=== PATIENT | male | born 1970 | race Caucasian/White ===

== ENCOUNTER 2019-07-02 17:14 | Emergency (ER) | payer MEDICAID ==
[~2019-07-02] VITALS: Ht 175.3 cm; Wt 72.7 kg
[2019-07-02 18:05] VITALS: BP 146/94
[2019-07-02 18:28] LABS: BASOPHILS # (AUTO) 0.04 x10^3/uL (0-0.1); BASOPHILS % (AUTO) 0 % (0-1); EOSINOPHILS % (AUTO) 3 % (1-7); LYMPHOCYTES # (AUTO) 1.58 x10^3/uL (1-3.4); LYMPHOCYTES % (AUTO) 13 % (22-44); MD NO; MEAN CORPUSCULAR HEMOGLOBIN 29.2 pg (27.5-34.5); MEAN CORPUSCULAR HGB CONC 32.9 g/dL (33.2-36.2); MEAN CORPUSCULAR VOLUME 88.9 fL (81-97); MEAN PLATELET VOLUME 10.5 fL (7.4-10.4); MONOCYTES # (AUTO) 1.16 x10^3/uL (0.2-0.8); MONOCYTES % (AUTO) 10 % (2-9); NEUTROPHILS % (AUTO) 74 % (42-75); PLATELET COUNT 139 x10^3/uL (130-400); RED BLOOD COUNT 4.99 x10^6/uL (4.38-5.82); RED CELL DISTRIBUTION WIDTH 14.2 % (9.4-14.8)
[2019-07-02 18:40] LABS: ALANINE AMINOTRANSFERASE 45 U/L (12-78); ALBUMIN 4.1 g/dL (3.4-5.0); ANION GAP 8 mmol/L (5-15); CHLORIDE 103 mmol/L (98-107)
[2019-07-02 18:42] LABS: ALKALINE PHOSPHATASE 101 U/L (45-117); BILIRUBIN,TOTAL 0.5 mg/dL (0.2-1.0)
--- NOTE | 2019-07-02 18:53 | NUR ---
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 TAIWO
[2019-07-02] MEDS ORDERED: KETOROLAC 30 MG/1 ML IM ONE (19:30)
[2019-07-02] MEDS ORDERED: CLINDAMYCIN 150 MG/ML, 6ML IM ONE (19:30)
[2019-07-02] MEDS ORDERED: KETOROLAC 30 MG/1 ML ONE (19:48)
[2019-07-02] MEDS ORDERED: CLINDAMYCIN 300 MG CAPSULE ONE (19:48)
== END 2019-07-02 20:33 | disposition home or self-care (01) ==
LOC: ED 20:25
DX: L03.113 Cellulitis of right upper limb (principal)
CPT/HCPCS: 36415; 73130; 80053; 85025; 87040; 96372; 99284; J1885; S0077

== ENCOUNTER 2019-07-06 13:03 | Inpatient (IN) | payer MEDICAID ==
[~2019-07-06] VITALS: Ht 175.3 cm; Wt 72.9 kg
--- NOTE | 2019-07-06 13:43 | NUR ---
C/O LLQ ABD PAIN AFTER STARTING ABX ON 07/03/19 FOR RIGHT WRIST CELLULITIS. PT C/O CHILLS, NAUSEA, AND HURTS TO PEE. CONNECTED TO MONITORING. CALL LIGHT IN REACH. MD AT BEDSIDE. AWAITING ORDERS AT THIS TIME.
[2019-07-06] MEDS ORDERED: ACETAMINOPHEN 500 MG TABLET PO ONE (14:00)
[2019-07-06] MEDS ORDERED: SODIUM CHLORIDE 0.9% 1,000ML IVBOLUS ONE ×2 (14:00→15:00)
--- NOTE | 2019-07-06 14:01 | NUR ---
IV START. LABS DRAWN. 2 SETS BLOOD CX DRAWN AND TAKEN BY LAB. UA COLLECTED AND SENT TO LAB.
[2019-07-06] MEDS ORDERED: ACETAMINOPHEN 500 MG TABLET ONE (14:05)
--- NOTE | 2019-07-06 14:07 | NUR ---
MEDS ADMIN PER OCT.
[2019-07-06 14:26] LABS: ALBUMIN 4.3 g/dL (3.4-5.0); ANION GAP 9 mmol/L (5-15); CALCIUM 9.6 mg/dL (8.5-10.1); CHLORIDE 103 mmol/L (98-107); CREATININE 0.95 mg/dL (0.7-1.3)
[2019-07-06 14:31] LABS: MEAN CORPUSCULAR HEMOGLOBIN 29.2 pg (27.5-34.5); MEAN CORPUSCULAR VOLUME 88.5 fL (81-97); MEAN PLATELET VOLUME 10.7 fL (7.4-10.4); PLATELET COUNT 180 x10^3/uL (130-400); RED BLOOD COUNT 5.35 x10^6/uL (4.38-5.82); RED CELL DISTRIBUTION WIDTH 13.7 % (9.4-14.8)
[2019-07-06 14:39] LABS: MICROSCOPIC NOT IND
[2019-07-06 14:41] LABS: BASOPHILS # (AUTO) 0.05 x10^3/uL (0-0.1); BASOPHILS % (AUTO) 0 % (0-1); EOSINOPHILS # (AUTO) 0.05 x10^3/uL (0-0.4); EOSINOPHILS % (AUTO) 0 % (1-7); LYMPHOCYTES # (AUTO) 1.42 x10^3/uL (1-3.4); LYMPHOCYTES % (AUTO) 10 % (22-44); MD SCAN; MONOCYTES # (AUTO) 0.84 x10^3/uL (0.2-0.8); MONOCYTES % (AUTO) 6 % (2-9); NEUTROPHILS # (AUTO) 11.57 x10^3/uL (1.8-6.8); NEUTROPHILS % (AUTO) 83 % (42-75)
[2019-07-06 14:47] LABS: CULTURE INDICATED? NO
[2019-07-06] MEDS ORDERED: CEFTRIAXONE PMX 1GM/50ML 50 ML IV ONE (15:00)
[2019-07-06] MEDS ORDERED: CEFTRIAXONE PMX 1GM/50ML 50 ML ONE (15:10)
--- NOTE | 2019-07-06 15:16 | NUR ---
IV ABX AND IVF ADMIN PER MAR. PT STATES HE'S FEELING BETTER. RESTING ON GURNEY. MARAVILLA.
--- NOTE | 2019-07-06 15:57 | NUR ---
PT RESTING COMFORTABLY ON GURNEY WATCHING TV. NADN. CALL LIGHT IN REACH. HOSPITALIST AT BEDSIDE.
[2019-07-06] MEDS ORDERED: ARIP20TA5 PO (16:00)
[2019-07-06] MEDS ORDERED: LACTATED RINGERS 1,000 ML IV SCH (16:30)
[2019-07-06] MEDS ORDERED: ONDANSETRON 2MG/ML, 2ML IVPush PRN (16:30)
[2019-07-06] MEDS ORDERED: ONDANSETRON ODT 4 MG PO PRN (16:30)
[2019-07-06] MEDS ORDERED: VANCOMYCIN PER PHARMACY MC PRN (16:30)
[2019-07-06 16:55] LABS: TROPONIN I < 0.015 ng/mL (0.000-0.045)
--- NOTE | 2019-07-06 16:58 | NUR ---
REPORT GIVEN TO WESLY DELANEY
[2019-07-06 17:32] VITALS: BP 140/82
[2019-07-06] MEDS ORDERED: PHARMACOKINETIC MONITORING MC PRN (18:00)
[2019-07-06] MEDS ORDERED: PHARMACOKINETIC CONSULTATION MC ONE (18:00)
[2019-07-06] MEDS: ACETAMINOPHEN 325 MG TABLET PO PRN (18:34)
[2019-07-06 18:35] LABS: HCT (SEDRATE) 47.4 % (39.2-51.8)
[2019-07-06 19:33] VITALS: BP 145/87
[2019-07-06] MEDS: VANCOMYCIN 1,400 MG in SODIUM CHLORIDE 0.9% 250 ML IV SCH (21:21)
[2019-07-06] MEDS: ENOXAPARIN 40 MG/0.4 ML SQ SCH (21:22)
[2019-07-07 00:21] VITALS: BP 155/95
[2019-07-07] MEDS: ACETAMINOPHEN 325 MG TABLET PO PRN ×5 (00:26→20:50)
[2019-07-07] MEDS: IBUPROFEN 600 MG TABLET PO PRN ×2 (05:00→12:25)
[2019-07-07 05:05] VITALS: BP 145/87
[2019-07-07 05:22] LABS: BASOPHILS # (AUTO) 0.04 x10^3/uL (0-0.1); BASOPHILS % (AUTO) 0 % (0-1); EOSINOPHILS # (AUTO) 0.01 x10^3/uL (0-0.4); EOSINOPHILS % (AUTO) 0 % (1-7); LYMPHOCYTES # (AUTO) 1.21 x10^3/uL (1-3.4); LYMPHOCYTES % (AUTO) 11 % (22-44); MD SCAN; MEAN CORPUSCULAR HGB CONC 32.8 g/dL (33.2-36.2); MEAN CORPUSCULAR VOLUME 88.3 fL (81-97); MEAN PLATELET VOLUME 10.4 fL (7.4-10.4); MONOCYTES # (AUTO) 1.13 x10^3/uL (0.2-0.8); MONOCYTES % (AUTO) 10 % (2-9); NEUTROPHILS # (AUTO) 8.79 x10^3/uL (1.8-6.8); NEUTROPHILS % (AUTO) 79 % (42-75); PLATELET COUNT 145 x10^3/uL (130-400); RED BLOOD COUNT 4.65 x10^6/uL (4.38-5.82); RED CELL DISTRIBUTION WIDTH 13.8 % (9.4-14.8)
[2019-07-07 05:26] LABS: ANION GAP 6 mmol/L (5-15); CALCIUM 8.5 mg/dL (8.5-10.1); CHLORIDE 105 mmol/L (98-107)
[2019-07-07 05:27] LABS: CREATININE 0.92 mg/dL (0.7-1.3)
[2019-07-07 05:35] LABS: HEMOGLOBIN A1C 5.4 % (4.2-6.3)
[2019-07-07] MEDS: VANCOMYCIN 1,400 MG in SODIUM CHLORIDE 0.9% 250 ML IV SCH ×2 (08:34→20:50)
[2019-07-07] MEDS: ARIPIPRAZOLE 10 MG TABLET PO SCH (08:34)
[2019-07-07 10:22] VITALS: BP 143/85
[2019-07-07 19:41] VITALS: BP 150/73
[2019-07-07] MEDS: ENOXAPARIN 40 MG/0.4 ML SQ SCH (20:50)
[2019-07-08 01:57] VITALS: BP 166/95
[2019-07-08] MEDS: ACETAMINOPHEN 325 MG TABLET PO PRN ×4 (02:09→21:46)
[2019-07-08] MEDS: IBUPROFEN 600 MG TABLET PO PRN ×4 (02:09→21:47)
[2019-07-08 07:00] VITALS: BP 134/80
[2019-07-08] MEDS: ARIPIPRAZOLE 10 MG TABLET PO SCH (08:34)
[2019-07-08] MEDS: VANCOMYCIN 1,400 MG in SODIUM CHLORIDE 0.9% 250 ML IV SCH ×2 (08:35→21:47)
[2019-07-08] MEDS: SODIUM CHLORIDE 0.9% 1,000 ML IV SCH ×2 (10:30→18:30)
[2019-07-08 11:03] LABS: BASOPHILS # (AUTO) 0.03 x10^3/uL (0-0.1); BASOPHILS % (AUTO) 0 % (0-1); EOSINOPHILS # (AUTO) 0.01 x10^3/uL (0-0.4); EOSINOPHILS % (AUTO) 0 % (1-7); LYMPHOCYTES # (AUTO) 1.26 x10^3/uL (1-3.4); LYMPHOCYTES % (AUTO) 11 % (22-44); MD NO; MEAN CORPUSCULAR HEMOGLOBIN 28.4 pg (27.5-34.5); MEAN CORPUSCULAR HGB CONC 32.5 g/dL (33.2-36.2); MEAN CORPUSCULAR VOLUME 87.2 fL (81-97); MEAN PLATELET VOLUME 9.8 fL (7.4-10.4); MONOCYTES # (AUTO) 1.41 x10^3/uL (0.2-0.8); MONOCYTES % (AUTO) 12 % (2-9); NEUTROPHILS # (AUTO) 8.71 x10^3/uL (1.8-6.8); NEUTROPHILS % (AUTO) 76 % (42-75); PLATELET COUNT 154 x10^3/uL (130-400); RED BLOOD COUNT 4.93 x10^6/uL (4.38-5.82); RED CELL DISTRIBUTION WIDTH 13.9 % (9.4-14.8)
[2019-07-08 11:10] LABS: ALBUMIN 3.2 g/dL (3.4-5.0); CALCIUM 8.5 mg/dL (8.5-10.1)
[2019-07-08 11:13] LABS: ALANINE AMINOTRANSFERASE 42 U/L (12-78); ALKALINE PHOSPHATASE 95 U/L (45-117); BILIRUBIN,TOTAL 0.3 mg/dL (0.2-1.0); CREATININE 0.86 mg/dL (0.7-1.3); TOTAL PROTEIN 6.9 g/dL (6.4-8.2)
[2019-07-08 11:35] LABS: CHLORIDE 108 mmol/L (98-107)
[2019-07-08 11:36] LABS: ANION GAP 4 mmol/L (5-15)
[2019-07-08] MEDS: CEFTRIAXONE PMX 2GM/50ML 50 ML IV SCH (12:16)
[2019-07-08 12:53] VITALS: BP 143/83
[2019-07-08 17:51] LABS: HCT (SEDRATE) 41.7 % (39.2-51.8)
[2019-07-08 18:27] LABS: RAPID INFLUENZA A Negative (Negative); RAPID INFLUENZA B Negative (Negative)
[2019-07-08 19:38] VITALS: BP 141/90
[2019-07-08] MEDS: ENOXAPARIN 40 MG/0.4 ML SQ SCH (21:00)
[2019-07-08 21:53] LABS: MICROSCOPIC NOT IND
[2019-07-08 21:56] LABS: CULTURE INDICATED? NO
[2019-07-09 01:41] VITALS: BP 145/88
[2019-07-09] MEDS: SODIUM CHLORIDE 0.9% 1,000 ML IV SCH ×2 (02:30→10:43)
[2019-07-09 06:01] LABS: ANION GAP 4 mmol/L (5-15); CALCIUM 8.4 mg/dL (8.5-10.1); CHLORIDE 106 mmol/L (98-107)
[2019-07-09 06:04] LABS: CREATININE 0.85 mg/dL (0.7-1.3)
[2019-07-09 06:12] LABS: MEAN CORPUSCULAR HEMOGLOBIN 28.7 pg (27.5-34.5); MEAN CORPUSCULAR HGB CONC 32.8 g/dL (33.2-36.2); MEAN CORPUSCULAR VOLUME 87.6 fL (81-97); PLATELET COUNT 151 x10^3/uL (130-400); RED BLOOD COUNT 5.01 x10^6/uL (4.38-5.82)
[2019-07-09 07:20] LABS: BASOPHILS # (AUTO) 0.07 x10^3/uL (0-0.1); BASOPHILS % (AUTO) 1 % (0-1); EOSINOPHILS # (AUTO) 0.08 x10^3/uL (0-0.4); EOSINOPHILS % (AUTO) 1 % (1-7); LYMPHOCYTES # (AUTO) 1.39 x10^3/uL (1-3.4); LYMPHOCYTES % (AUTO) 14 % (22-44); MD SCAN; MONOCYTES # (AUTO) 1.57 x10^3/uL (0.2-0.8); MONOCYTES % (AUTO) 16 % (2-9); NEUTROPHILS # (AUTO) 6.98 x10^3/uL (1.8-6.8); NEUTROPHILS % (AUTO) 69 % (42-75)
[2019-07-09 08:10] VITALS: BP 148/92
[2019-07-09] MEDS: ACETAMINOPHEN 325 MG TABLET PO PRN (08:45)
[2019-07-09] MEDS: IBUPROFEN 600 MG TABLET PO PRN (08:45)
[2019-07-09] MEDS: ARIPIPRAZOLE 10 MG TABLET PO SCH (08:45)
[2019-07-09] MEDS: CEFTRIAXONE PMX 2GM/50ML 50 ML IV SCH (10:51)
[2019-07-09] MEDS ORDERED: GADOTERATE 7.5 MMOL/15 ML SYR ONE (13:00)
[2019-07-09 13:47] VITALS: BP 154/93
== END 2019-07-09 14:20 | disposition left against medical advice (07) | DRG 872 ==
LOC: ED 14:05 → EDIP 16:22 → 3N 17:22
PROVIDERS: ADMIT Family Medicine; ATTEND Hospitalist
DX: A41.9 Sepsis, unspecified organism (principal); L03.113 Cellulitis of right upper limb; E87.1 Hypo-osmolality and hyponatremia; B19.20 Unspecified viral hepatitis C without hepatic coma; F17.210 Nicotine dependence, cigarettes, uncomplicated; F32.9 Major depressive disorder, single episode, unspecified
CPT/HCPCS: 36415; 70100; 71045; 80048; 80053; 80074; 81003; 82040; 83036; 83605; 84145; 84484; 85025; 85651; 86140; 87040; 87081; 87389; 87400; 87521; 93005; 93306; 96361; 96374; 99285; G0378; J0696; J1650; J3370; A9575; J7030; J7050; J7120

== ENCOUNTER 2019-07-11 08:38 | Emergency (ER) | payer MEDICAID ==
[~2019-07-11] VITALS: Ht 175.3 cm; Wt 75.6 kg
[~2019-07-11 08:38] MED LIST: ARIP20TA5 PO
--- NOTE | 2019-07-11 08:59 | NUR ---
PT PRESENTS TO ED FOR CELLULITIS RECHECK, STATING "IT'S MUCH BETTER, I JUST NEED A WORK RELEASE NOTE." PT STATES HE LEFT AMA DURING RECENT HOSPITALIZATION FOR CELLULITIS OF RIGHT HAND. CELLULITIS APPEARS TO BE RESOLVED. PT A&O, RESPS EVEN AND UNLABORED, PT AMB TO ROOM WITH STEADY GAIT. AWAITING MD ASSESSMENT AND ORDERS.
--- NOTE | 2019-07-11 09:04 | NUR ---
JARED REVELES AT BEDSIDE FOR INITIAL ASSESSMENT.
--- NOTE | 2019-07-11 10:00 | NUR ---
LATE ENTRY D/T PATIENT CARE: PT SITTING ON CHAIR, A&O, RESPS EVEN AND UNLABORED. AWAITING DC PAPERWORK FROM PROVIDER AT THIS TIME.
[2019-07-11 10:42] VITALS: BP 133/84
--- NOTE | 2019-07-11 10:47 | NUR ---
PT GIVEN DC INSTRUCTIONS AND SCRIPT, EDUCATED REGARDING DC RX FOR LISINOPRIL, ALBULTEROL, TESSALON, AND MOTRIN. PT A&O, RESPS EVEN AND UNLABORED, NADN. PT AMB TO DC DESK WITH STEADY GAIT, NADN.
[2019-07-11] MEDS ORDERED: PANTOPRAZOLE 40 MG IV IVPush SCH (11:00)
== END 2019-07-11 10:52 | disposition home or self-care (01) ==
LOC: ED 10:50
DX: B34.9 Viral infection, unspecified (principal); Z76.0 Encounter for issue of repeat prescription; I10 Essential (primary) hypertension
CPT/HCPCS: 71046; 99283

== ENCOUNTER 2019-07-29 12:04 | Emergency (ER) | payer MEDICAID, OTHER ==
[~2019-07-29] VITALS: Ht 175.3 cm; Wt 71.5 kg
[2019-07-29] MEDS ORDERED: KETOROLAC 30 MG/1 ML IM ONE (13:00)
--- NOTE | 2019-07-29 13:05 | NUR ---
right pupil is larger then left, both have brisk reaction to light. pt a&ox4, no focal weakness noted. pt denies head injury or LOC. EDPA Franc notified, pt reassessed by PA. no orders received.
--- NOTE | 2019-07-29 13:09 | NUR ---
pt refuses toradol stating pain is in control and he prefers to take OTC med at home.
--- NOTE | 2019-07-29 13:24 | NUR ---
pt back from xray with tech, gait steady.
[2019-07-29 14:20] VITALS: BP 147/101
[2019-07-29] MEDS ORDERED: NEOSPORIN OINT. PKT 1 PACKET ONE (14:25)
--- NOTE | 2019-07-29 14:42 | NUR ---
neosporin dressing applied to right elbow scab per EDPA's instructions. pt's arm placed in sling. pt tolerated well. pt a&o, resps even and unlabored. vs reassessed and reviewed with EDPA, pt states he did not take his daily anti-hypertensive today. EDPA ok'd dc. pt a&o, resps even and unlabored. pt amb to dc desk with steady gait. nadn at dc. Addendum: 07/29/19 at 1446 by JUSTIN neosporin dressing applied to right elbow scab per EDPA's instructions. pt's arm placed in sling. pt tolerated well. pt a&o, resps even and unlabored. vs reassessed and reviewed with EDPA, pt states he did not take his daily anti-hypertensive today. EDPA ok'd dc. Pt given dc instructions and script, educated regarding rx for keflex. pt a&o, resps even and unlabored. pt amb to dc desk with steady gait. nadn at dc.
[2019-07-29] MEDS ORDERED: NEOSPORIN OINT. PKT 1 PACKET TP ONE (15:00)
== END 2019-07-29 14:43 | disposition home or self-care (01) ==
LOC: ED 14:30
DX: S50.01XA Contusion of right elbow, initial encounter (principal); L03.113 Cellulitis of right upper limb; F17.200 Nicotine dependence, unspecified, uncomplicated; I10 Essential (primary) hypertension; Z88.0 Allergy status to penicillin; Y08.89XA Assault by other specified means, initial encounter; Y93.89 Activity, other specified; Y92.89 Other specified places as the place of occurrence of the external cause; Y99.8 Other external cause status
CPT/HCPCS: 99283